=== PATIENT | male | born 2000 | race Caucasian/White ===

== ENCOUNTER 2023-08-26 18:20 | Emergency (ER) | payer OTHER, SELFPAY ==
[2023-08-26 18:32] VITALS: BP 144/58; PULSE 107; RESP 16; TEMP 37.7; O2SAT 100
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
[2023-08-26 18:51] VITALS: BP 144/58; PULSE 107; RESP 16; TEMP 37.7; O2SAT 100
== END 2023-08-26 19:00 | disposition home or self-care (01) ==
PROVIDERS: Emergency Provider Nurse Practitioner Family
DX: S16.1XXA Strain of muscle, fascia and tendon at neck level, initial encounter (principal); V43.52XA Car driver injured in collision with other type car in traffic accident, initial encounter
CPT/HCPCS: 99203; G0463